=== PATIENT | female | born 1995 | race Caucasian/White ===

== ENCOUNTER 2018-11-07 21:41 | Emergency (ER) | payer SELFPAY ==
[~2018-11-07] VITALS: Ht 167.6 cm; Wt 137.0 kg
[2018-11-07] MEDS ORDERED: KETOROLAC TROMETHAMINE 30 MG/ML VIAL IV STA (22:56)
--- NOTE | 2018-11-07 23:21 | Diagnostic Imaging Report ---
CT BRAIN [facility] HISTORY: Headache COMPARISON: None. TECHNIQUE: Noncontrast axial scans were obtained from skull base to the vertex. Coronal and sagittal reconstructions obtained from the axial data. One or more of the following dose reduction techniques were used: Automated exposure control, adjustment of the mA and/or kV according to patient size, and/or utilization of iterative reconstruction technique. DISCUSSION: Scalp/Skull: Unremarkable. Brain sulci: Appropriate for patient's age. Ventricles: Normal in size and configuration. No hydrocephalus. Extra-axial spaces: No masses or fluid collections. Parenchyma: No abnormal densities. No mass, hemorrhage, or large vascular territory acute infarct. Dural sinuses: No abnormal densities. Sellar/Suprasellar region: Intact. Skull base: Intact. Incidental findings: None. IMPRESSION: No intracranial abnormalities. Signed by: Dr. Humberto Avalos M.D. on 11/07/2018 11:17 PM
[2018-11-07 23:45] VITALS: BP 155/75
== END 2018-11-07 23:54 | disposition home or self-care (01) ==
LOC: FSED 21:41
DX: G44.211 Episodic tension-type headache, intractable (principal)
CPT/HCPCS: 70450; 80048; 80076; 80307; 81003; 81025; 85025; 99284